=== PATIENT | female | born 1965 | race African-American/Black ===

== ENCOUNTER 2020-10-04 07:30 | Day surgery (SDC) | payer OTHER ==
[2020-09-27 12:41] VITALS: BMI 25.0
[2020-10-04] MEDS ORDERED: ROPIVACAINE HCL 0.5% 30ML VIAL ONE (08:11)
[2020-10-04] MEDS ORDERED: MIDAZOLAM HCL 2 MG/2 ML SINGLE DOSE VIAL ONE (08:11)
[2020-10-04] MEDS ORDERED: DEXAMETHASONE SOD PHOSPHATE 4 MG/1 ML VIAL ONE (08:53)
[2020-10-04] MEDS ORDERED: ONDANSETRON 4 MG/2 ML VIAL ONE (08:53)
[2020-10-04] MEDS ORDERED: LIDOCAINE HCL/PF 2% SDV 5ML VIAL ONE (08:53)
[2020-10-04] MEDS ORDERED: ceFAZolin SODIUM 1 GM VIAL ONE (08:53)
[2020-10-04] MEDS ORDERED: PROPOFOL 20 ML ONE (08:54)
[2020-10-04] MEDS ORDERED: ONDANSETRON 4 MG/2 ML VIAL IVPUSH PRN (11:33)
[2020-10-04] MEDS ORDERED: oxyCODONE HCL 5 MG TABLET PO PRN (11:33)
[2020-10-04] MEDS ORDERED: LACTATED RINGERS SOLUTION 1,000 ML IV SCH (11:45)
[2020-10-04 13:10] VITALS: TEMP 98.2
[2020-10-04 13:39] VITALS: PULSE 66
[2020-10-04 14:48] VITALS: BP 114/62
== END 2020-10-04 14:00 | disposition home or self-care (01) ==
LOC: FASU 07:30
PROVIDERS: ATTEND Orthopaedic Surgery
PROC: 0RQK4ZZ Repair Left Shoulder Joint, Percutaneous Endoscopic Approach (ICD-10-PCS; 2020-10-04)
PROC: 0PBB4ZZ Excision of Left Clavicle, Percutaneous Endoscopic Approach (ICD-10-PCS; 2020-10-04)
PROC: 0RBK4ZZ Excision of Left Shoulder Joint, Percutaneous Endoscopic Approach (ICD-10-PCS; principal; 2020-10-04 10:26)
DX: M25.612 Stiffness of left shoulder, not elsewhere classified (principal); S43.432A Superior glenoid labrum lesion of left shoulder, initial encounter; M75.42 Impingement syndrome of left shoulder; M75.102 Unspecified rotator cuff tear or rupture of left shoulder, not specified as traumatic; M24.012 Loose body in left shoulder; X58.XXXA Exposure to other specified factors, initial encounter; Y93.9 Activity, unspecified; Y92.9 Unspecified place or not applicable
CPT/HCPCS: 94760

== ENCOUNTER 2020-10-17 12:30 | Emergency (ER) | payer OTHER ==
[2020-10-17 12:46] VITALS: BP 153/87; PULSE 88; TEMP 98; BMI 24.7
== END 2020-10-17 13:03 | disposition home or self-care (01) ==
LOC: FER 12:30
DX: L29.9 Pruritus, unspecified (principal)
CPT/HCPCS: 99281-25

== ENCOUNTER 2021-04-26 05:59 | Inpatient (IN) | payer OTHER ==
[2021-04-20 12:52] VITALS: BMI 24.7
[2021-04-26] MEDS ORDERED: CEFAZOLIN 2 GM in DEXTROSE 5%-WATER - 50 ML IVPB ONE (06:45)
[2021-04-26] MEDS ORDERED: TRANEXAMIC ACID 1000 MG/10 ML VIAL IVPUSH ONE (06:45)
[2021-04-26] MEDS ORDERED: CELECOXIB 200 MG CAPSULE PO ONE (06:45)
[2021-04-26] MEDS ORDERED: VANCOMYCIN 1,000 MG VIAL (RESTRICTED TO ID ONLY) ONE (07:05)
[2021-04-26] MEDS ORDERED: PROPOFOL 20 ML ONE ×6 (07:05→08:40)
[2021-04-26] MEDS ORDERED: ceFAZolin SODIUM 1 GM VIAL ONE (07:05)
[2021-04-26] MEDS ORDERED: SUCCINYLCHOLINE CHLORIDE 200 MG/10 ML SYRINGE ONE (07:06)
[2021-04-26] MEDS ORDERED: BUPIVACAINE LIPOSOME/PF (EXPAREL) 266 MG/20 ML VIAL ONE (07:07)
[2021-04-26] MEDS ORDERED: MIDAZOLAM HCL 2 MG/2 ML SINGLE DOSE VIAL ONE ×3 (07:07→08:07)
[2021-04-26] MEDS ORDERED: SODIUM CHLORIDE 0.9% P/F 10 ML VIAL IJ ONE (07:08)
[2021-04-26] MEDS ORDERED: BUPIVACAINE HCL/PF 0.5% (5MG/ML) 10 ML VIAL ONE (07:08)
[2021-04-26] MEDS ORDERED: CELECOXIB 200 MG CAPSULE ONE (07:09)
[2021-04-26] MEDS ORDERED: BUPIVACAINE HCL 50 ML ONE (07:11)
[2021-04-26] MEDS ORDERED: ONDANSETRON 4 MG/2 ML VIAL IVPUSH PRN (07:58)
[2021-04-26] MEDS ORDERED: MAGNESIUM HYDROX 2400MG/30ML ORAL SUSPENSION 30 ML CUP PO PRN (07:58)
[2021-04-26] MEDS ORDERED: MAG HYDROX/AL HYDROX/SIMETH 30 ML UNIT-DOSE CUP PO PRN (07:58)
[2021-04-26] MEDS ORDERED: LACTATED RINGERS SOLUTION 1,000 ML IV SCH (08:00)
[2021-04-26] MEDS ORDERED: THROMBIN (BOVINE) 5,000 UNIT VIAL TP ONE (08:55)
[2021-04-26] MEDS ORDERED: GELATIN, ABSORBABLE 100 EACH SPONGE TP ONE (09:24)
[2021-04-26] MEDS ORDERED: oxyCODONE HCL 5 MG TABLET PO PRN (10:10)
[2021-04-26] MEDS ORDERED: ACETAMINOPHEN 325 MG TABLET (FP) PO SCH (10:15)
[2021-04-26 11:10] LABS: HIV INTERPRETATION NEGATIVE (NEGATIVE)
[2021-04-26] MEDS: LORATADINE 10 MG TABLET PO SCH (11:55)
[2021-04-26] MEDS: SENNOSIDES/DOCUSATE COMBO (SENNA PLUS) TABLET (UD) PO SCH ×2 (11:55→22:01)
[2021-04-26] MEDS: MULTIVITAMINS (DAILY MVI) TABLET (FP) PO SCH (11:55)
[2021-04-26] MEDS: LISINOPRIL 10 MG TABLET PO SCH (11:56)
[2021-04-26] MEDS: PANTOPRAZOLE 40 MG TABLET PO SCH (11:56)
[2021-04-26] MEDS: hydrOXYzine PAMOATE 25 MG CAPSULE (FP) PO PRN (12:58)
[2021-04-26] MEDS: oxyCODONE HCL 5 MG TABLET PO PRN ×3 (14:26→22:01)
[2021-04-26] MEDS: ACETAMINOPHEN 1000 MG/100 ML VIAL (NON FORMULARY) IVPB PRN ×2 (16:22→23:42)
[2021-04-26] MEDS: CEFAZOLIN 2 GM/D5W 2 GM/50 ML ML IVPB SCH ×2 (16:27→23:42)
[2021-04-26] MEDS: KETOROLAC TROMETHAMINE 30 MG/1 ML VIAL IVPUSH SCH ×2 (17:26→17:29)
[2021-04-26] MEDS: ACETAMINOPHEN 325 MG TABLET (FP) PO SCH (17:28)
[2021-04-26] MEDS: traZODone HCL 100 MG TABLET (FP) PO SCH (22:00)
[2021-04-26] MEDS: oxyCODONE HCL 10 MG SUSTAINED ACTING TABLET PO SCH (22:00)
[2021-04-27] MEDS: KETOROLAC TROMETHAMINE 30 MG/1 ML VIAL IVPUSH SCH ×3 (01:43→17:06)
[2021-04-27] MEDS: ACETAMINOPHEN 325 MG TABLET (FP) PO SCH ×4 (05:52→18:06)
[2021-04-27] MEDS: oxyCODONE HCL 5 MG TABLET PO PRN ×3 (06:03→17:07)
[2021-04-27] MEDS: ACETAMINOPHEN 1000 MG/100 ML VIAL (NON FORMULARY) IVPB PRN ×2 (06:04→12:47)
[2021-04-27 07:47] LABS: HEMATOCRIT 29.1 % (32.4-45.2); HEMOGLOBIN 9.8 GM/dl (10.7-15.3); MCH 31.5 pg (25.7-33.7); MCHC 33.6 g/dl (32.0-36.0); MEAN CELL VOLUME 93.8 fl (80-96); MEAN PLT VOLUME 8.3 fl (7.5-11.1); PLATELET COUNT 198 10^3/uL (134-434); RDW 13.6 % (11.6-15.6); WHITE BLOOD COUNT 6.4 K/mm3 (4.0-10.8)
[2021-04-27] MEDS: ASPIRIN 325 MG TABLET PO SCH (08:08)
[2021-04-27] MEDS: oxyCODONE HCL 10 MG SUSTAINED ACTING TABLET PO SCH ×2 (09:47→21:07)
[2021-04-27] MEDS: LORATADINE 10 MG TABLET PO SCH (09:47)
[2021-04-27] MEDS: SENNOSIDES/DOCUSATE COMBO (SENNA PLUS) TABLET (UD) PO SCH ×2 (09:48→21:08)
[2021-04-27] MEDS: LISINOPRIL 10 MG TABLET PO SCH (09:50)
[2021-04-27] MEDS: PANTOPRAZOLE 40 MG TABLET PO SCH (09:50)
[2021-04-27] MEDS: MULTIVITAMINS (DAILY MVI) TABLET (FP) PO SCH (09:50)
[2021-04-27] MEDS ORDERED: PT OWN MED DRAWER 7, Y5N ONE ×2 (14:45→21:06)
[2021-04-27] MEDS: CYCLOBENZAPRINE HCL 5 MG TABLET PO SCH ×2 (14:49→21:07)
[2021-04-27] MEDS: hydrOXYzine PAMOATE 25 MG CAPSULE (FP) PO PRN (18:57)
[2021-04-27] MEDS: traZODone HCL 100 MG TABLET (FP) PO SCH (21:07)
[2021-04-28] MEDS: ACETAMINOPHEN 325 MG TABLET (FP) PO SCH ×3 (00:09→13:38)
[2021-04-28] MEDS: oxyCODONE HCL 5 MG TABLET PO PRN ×2 (00:09→05:05)
[2021-04-28] MEDS: KETOROLAC TROMETHAMINE 30 MG/1 ML VIAL IVPUSH SCH ×2 (02:00→09:13)
[2021-04-28] MEDS ORDERED: PT OWN MED DRAWER 7, Y5N ONE (05:02)
[2021-04-28] MEDS: CYCLOBENZAPRINE HCL 5 MG TABLET PO SCH ×2 (05:06→13:47)
[2021-04-28 08:02] LABS: HEMATOCRIT 32.6 % (32.4-45.2); HEMOGLOBIN 10.7 GM/dl (10.7-15.3); MCH 31.3 pg (25.7-33.7); MCHC 32.9 g/dl (32.0-36.0); MEAN CELL VOLUME 95.3 fl (80-96); MEAN PLT VOLUME 8.6 fl (7.5-11.1); PLATELET COUNT 239 10^3/uL (134-434); RBC 3.42 M/mm3 (3.60-5.2); RDW 13.4 % (11.6-15.6); WHITE BLOOD COUNT 9.1 K/mm3 (4.0-10.8)
[2021-04-28] MEDS: MULTIVITAMINS (DAILY MVI) TABLET (FP) PO SCH (09:13)
[2021-04-28] MEDS: ASPIRIN 325 MG TABLET PO SCH (09:13)
[2021-04-28] MEDS: PANTOPRAZOLE 40 MG TABLET PO SCH (09:14)
[2021-04-28] MEDS: SENNOSIDES/DOCUSATE COMBO (SENNA PLUS) TABLET (UD) PO SCH (09:14)
[2021-04-28] MEDS: oxyCODONE HCL 10 MG SUSTAINED ACTING TABLET PO SCH (09:15)
[2021-04-28] MEDS: LISINOPRIL 10 MG TABLET PO SCH (09:15)
[2021-04-28] MEDS: LORATADINE 10 MG TABLET PO SCH (09:15)
[2021-04-28 09:23] VITALS: BP 125/85; PULSE 98; TEMP 98.2
== END 2021-04-28 17:35 | disposition home health service (06) | DRG 470 ==
LOC: FM/S 05:59
PROVIDERS: ADMIT Orthopaedic Surgery; ATTEND Orthopaedic Surgery
PROC: 8E0Y0CZ Robotic Assisted Procedure of Lower Extremity, Open Approach (ICD-10-PCS; 2021-04-26)
PROC: 0SRD0JA Replacement of Left Knee Joint with Synthetic Substitute, Uncemented, Open Approach (ICD-10-PCS; principal; 2021-04-26 08:40)
DX: M17.12 Unilateral primary osteoarthritis, left knee (principal)
CPT/HCPCS: 36415; 73560-TC-LT-FY; 85027; 86803; 87389; 94760; 97010-GP; 97116-GP; 97162-GP; C9803; J0131; U0003; U0005

== ENCOUNTER 2023-03-04 09:31 | Emergency (ER) | payer OTHER ==
[2023-03-04 09:42] VITALS: BMI 26.6
[2023-03-04] MEDS ORDERED: ACETAMINOPHEN 1000 MG/100 ML BAG IVPB ONE (10:52)
[2023-03-04] MEDS ORDERED: METOCLOPRAMIDE HCL INJECTION 10 MG/2 ML VIAL IVPB ONE (10:53)
[2023-03-04] MEDS ORDERED: METOCLOPRAMIDE HCL INJECTION 10 MG/2 ML VIAL ONE (11:15)
[2023-03-04] MEDS ORDERED: ACETAMINOPHEN INJECTION 100 ML IVPB ONE (11:15)
[2023-03-04 12:00] LABS: BASO % 0.7 % (0-2.0); EOS % 1.2 % (0-4.5); HEMOGLOBIN 13.5 GM/dL (10.7-15.3); LYMPH % 48.4 % (8-40); MCH 31.1 pg (25.7-33.7); MCHC 33.7 g/dl (32.0-36.0); MEAN CELL VOLUME 92.1 fl (80-96); MONO % 8.4 % (3.8-10.2); NEUT % 41.3 % (42.8-82.8); PLATELET COUNT 329 10^3/uL (134-434); RBC 4.34 M/mm3 (3.60-5.2); RDW 14.3 % (11.6-15.6); WHITE BLOOD COUNT 5.6 K/mm3 (4.0-10.0)
[2023-03-04 12:12] LABS: INR 1.01 (0.83-1.09); PROTHROMBIN TIME (PATIENT) 11.7 SEC (9.7-13.0)
[2023-03-04 12:18] LABS: POTASSIUM 4.1 mmol/L (3.5-5.1)
[2023-03-04 12:20] LABS: ALBUMIN 4.3 g/dl (3.4-5.0); CALCIUM 9.7 mg/dL (8.5-10.1)
[2023-03-04 12:21] LABS: BLOOD UREA NITROGEN 9.5 mg/dL (7-18)
[2023-03-04 12:25] LABS: BILIRUBIN,TOTAL 0.5 mg/dL (0.2-1); TOT PROT 7.9 g/dl (6.4-8.2)
[2023-03-04 13:55] VITALS: BP 158/99; PULSE 72; RESP 17; TEMP 98
== END 2023-03-04 14:01 | disposition home or self-care (01) ==
LOC: JER 09:31
PROC: 3E033NZ Introduction of Analgesics, Hypnotics, Sedatives into Peripheral Vein, Percutaneous Approach (ICD-10-PCS; principal; 2023-03-04)
PROC: 3E033GC Introduction of Other Therapeutic Substance into Peripheral Vein, Percutaneous Approach (ICD-10-PCS; 2023-03-04)
DX: R11.10 Vomiting, unspecified (principal); R51.9 Headache, unspecified
CPT/HCPCS: 36415; 70450-TC; 80053; 85025; 85610; 85730; 86850; 86900; 86901; 93005; 93010; 99285-25